=== PATIENT | female | born 1955 | race Caucasian/White ===

== ENCOUNTER → 2017-02-14 | Outpatient (CLI) | payer BC, OTHER ==
[2013-12-25 14:13] VITALS: BP 97/61
[~2017-02-14] MED LIST: BUSP30TA PO; CALC1CAP3 PO; CHOL200074 PO; GABA300S PO; HEPA100D36 INJ; LACT1CAP8 PO; LEVO75TA5 PO; LIPA1CAP14 PO; LITHIUM OROTATE PO; METHYL PO; OMEG-33 PO; PRAS50CA PO; SODI650T PO; TRAM50TA PO; TRAZ100T12 PO; [UNRECOGNIZED DRUG - CODE] IJ
--- NOTE | 2017-02-14 14:03 | KCIC ---
EXAM: Dual energy x-ray absorptiometry (DEXA). HISTORY: Osteoporosis. TECHNIQUE: Dual energy x-ray absorptiometry of the lumbar spine and left hip was performed. Calculation of bone mineral density based on standard deviations above or below the expected young adult normal value (T-score) was completed. FINDINGS: The average bone mineral density associated with L1-L4 is 0.795 g/cm^2, corresponding with a T-score of -2.3. Vertebroplasty changes are noted at T12. The lowest measured T score is -2.6 at L3. The average total bone mineral density associated with the left hip is 0.725 g/cm^2, corresponding with a T-score of -1.8. In comparison with the baseline study of February 02, 2013, there is been a 12.7 percent increase in average bone mineral density of the lumbar spine and a 4.6 percent increase at the left hip. Refer to the worksheets for full detail. IMPRESSION: 1. Osteopenia. Fracture risk is increased. 2. Focal osteoporosis at L3. Note: Definitions established by the World Health Organization: 1. Normal: T-score is -1.0 or above the expected mean for a young adult. 2. Osteopenia: T-score is between -1.0 and -2.5. 3. Osteoporosis: T-score is -2.5 or below. Electronically signed by: dJ Hawk MD (02/14/2017 1:59 PM) [facility] [id number]
== END | disposition home or self-care (01) ==
LOC: KCIC DEXA 13:04
PROVIDERS: ATTEND Registered Nurse General Practice
DX: M81.0 Age-related osteoporosis without current pathological fracture (principal); M85.88 Other specified disorders of bone density and structure, other site
CPT/HCPCS: 77080

== ENCOUNTER → 2018-04-24 | Outpatient (CLI) | payer BC, OTHER ==
[2013-12-25 14:13] VITALS: BP 97/61
[~2018-04-24] MED LIST changes: +TRAZ-86 PO; -TRAZ100T12 PO
--- NOTE | 2018-04-24 19:14 | KCIC ---
Bilateral digital screening mammograms with 3-D tomosynthesis: Reason for examination: Routine screening. Comparison is made to previous study dated 12/18/2013. Bilateral mammograms in CC and oblique projections were obtained with 2-D imaging and 3-D tomosynthesis imaging on a [employer] Inspiration unit and reviewed on the workstation. Interpretation was made with the benefit of CAD. The skin and nipples show no abnormalities. No abnormal axillary lymph nodes are seen. The breast parenchyma is predominantly fatty. (Breast density: Category A.) There are no dominant masses, suspicious calcifications or architectural distortion. Impression: No evidence of malignancy. Recommend routine screening. BI-RAD Category 1: Negative. "Our facility is accredited by the [employer] Mammography Program." This patient's information has been entered into a reminder system for the patient to be notified with the results of her examination and a target date for the next mammogram. Electronically signed by: Jemima Griffith MD (04/24/2018 7:11 PM) [id number]
== END | disposition home or self-care (01) ==
LOC: KCIC MAMMO 12:43
PROVIDERS: ATTEND Obstetrics & Gynecology
DX: Z12.31 Encounter for screening mammogram for malignant neoplasm of breast (principal)
CPT/HCPCS: 77063; 77067

== ENCOUNTER → 2018-04-24 | Outpatient (CLI) | payer BC, OTHER ==
[2013-12-25 14:13] VITALS: BP 97/61
--- NOTE | 2018-04-24 14:58 | KCIC ---
EXAM: Dual energy x-ray absorptiometry (DEXA). HISTORY: Postmenopausal female presents for osteoporosis screening. COMPARISON: 02/02/2013. TECHNIQUE: Dual energy x-ray absorptiometry of the lumbar spine and left was performed. Calculation of bone mineral density based on standard deviations above or below the expected young adult normal value (T-score) was completed. FINDINGS: The average bone mineral density in the 1st through 4th lumbar vertebrae is 0.823 g/cmxcm, corresponding with a T-score of -2.0. There has been a 1.4% increase in density of the lumbar spine compared to the prior study. There are vertebroplasty changes at T12. The average total bone mineral density in the left hip is 0.732 g/cmxcm, corresponding with a T-score of -1.7. There has been a 6.1% increase in density of the left hip compared to the prior study. IMPRESSION: Osteopenia measured at the lumbar spine and left hip. Note: Definitions established by the World Health Organization: 1. Normal: T-score is -1.0 or above. 2. Osteopenia: T-score is between -1.0 and -2.5 . 3. Osteoporosis: T-score is -2.5 or below. Electronically signed by: Rosario Bates MD (04/24/2018 2:54 PM) [place] [id number]
== END | disposition home or self-care (01) ==
LOC: KCIC DEXA 12:38
PROVIDERS: ATTEND Registered Nurse General Practice
DX: M81.0 Age-related osteoporosis without current pathological fracture (principal); M85.89 Other specified disorders of bone density and structure, multiple sites; Z78.0 Asymptomatic menopausal state
CPT/HCPCS: 77080

== ENCOUNTER → 2020-07-29 | Outpatient (CLI) | payer BC, OTHER ==
[2013-12-25 14:13] VITALS: BP 97/61
[~2020-07-29] MED LIST changes: +TRAZ-123 PO; -TRAZ-86 PO
--- NOTE | 2020-07-29 13:09 | KCIC ---
EXAM: DUAL ENERGY X-RAY ABSORPTIOMETRY (DEXA). HISTORY: Osteoporosis. FINDINGS: The lowest measured T-score is -2.1 in the lumbar spine, based on a bone mineral density of 0.814 g/cm^2. Refer to the worksheets for full detail. There has been a 1.1 percent decrease in density of the lumbar spine and 2.1 percent decrease in dens ity of the left hip compared to a study performed 04/24/2018. IMPRESSION: 1. Low bone mass. Bone mineral density yields a T-score between -1.0 and -2.5. Fracture risk is incre ased. 2. FRAX report: Not available. METHODOLOGY: Dual energy x-ray absorptiometry was performed to measure bone mineral density. The foll owing analysis is based on the 2019 Official Positions of the International Society for Clinical Dens itometry: Measurements of the hips and the average of L1-L4 are preferred. When the spine and/or hip cannot be feasibly measured or interpreted, or in the setting of hyperparathyroidism, distal radial bone minera l density may be measured. The lumbar spine T-score is based on the average bone mineral density of L1-L4. In the setting of art ifact or anatomic abnormality, some lumbar levels may be excluded, and the remaining levels used for calculation. A single lumbar level is not used for diagnosis, and if only a single level is available for assessment, another anatomic site will be used to assign a diagnosis. The hip T-score is based on the bone mineral density measurement of the femoral neck or total proxima l femur of either side, whichever is lowest. Bilateral mean values are not used for diagnosis. The forearm T-score is derived from 33% of the distal radius of the nondominant forearm. Electronically signed by: Rosario Bates MD (07/29/2020 12:59 PM) [id number]
== END ==
LOC: KCIC DEXA 12:24
PROVIDERS: ATTEND Registered Nurse General Practice
DX: M81.0 Age-related osteoporosis without current pathological fracture (principal); M89.9 Disorder of bone, unspecified
CPT/HCPCS: 77080